=== PATIENT | female | born 2005 | race Caucasian/White ===

== ENCOUNTER 2023-06-26 19:50 | Emergency (ER) | payer BC ==
[2023-06-26] MEDS: Ibuprofen 600 MG Tab PO ONE (20:57)
[2023-06-26] MEDS: Acetaminophen 325 MG Tab PO ONE (20:57)
== END 2023-06-26 20:47 | disposition home or self-care (01) ==
LOC: MW.ED 19:50
DX: S93.402A Sprain of unspecified ligament of left ankle, initial encounter (principal); X50.1XXA Overexertion from prolonged static or awkward postures, initial encounter; Y93.39 Activity, other involving climbing, rappelling and jumping off
CPT/HCPCS: 73610; 99283; A9270